=== PATIENT | male | born 1960 | race African-American/Black ===

== ENCOUNTER 2017-06-06 21:59 | Emergency (ER) | payer MEDICAID ==
[~2017-06-06] VITALS: Ht 182.9 cm; Wt 81.5 kg
[2017-06-07 00:13] VITALS: BP 100/65
== END 2017-06-07 00:29 | disposition home or self-care (01) ==
LOC: EMS 22:00
DX: B35.3 Tinea pedis (principal); F17.210 Nicotine dependence, cigarettes, uncomplicated
CPT/HCPCS: 99282

== ENCOUNTER 2017-09-20 18:35 | Emergency (ER) | payer MEDICAID ==
[~2017-09-20] VITALS: Ht 182.9 cm; Wt 79.5 kg
[2017-09-20] MEDS ORDERED: METHOCARBAMOL 500 MG TABLET PO ONE (19:00)
[2017-09-20] MEDS ORDERED: ACETAMINOPHEN 325 MG TABLET PO ONE (19:00)
[2017-09-20 20:20] VITALS: BP 137/89
== END 2017-09-20 20:22 | disposition home or self-care (01) ==
LOC: EMS 18:37
DX: S46.911A Strain of unspecified muscle, fascia and tendon at shoulder and upper arm level, right arm, initial encounter (principal); F12.90 Cannabis use, unspecified, uncomplicated; F17.210 Nicotine dependence, cigarettes, uncomplicated; W18.39XA Other fall on same level, initial encounter; Y93.89 Activity, other specified; Y92.89 Other specified places as the place of occurrence of the external cause; Y99.8 Other external cause status
CPT/HCPCS: 99284; 99406

== ENCOUNTER 2018-02-12 21:08 | Emergency (ER) | payer MEDICAID ==
[~2018-02-12] VITALS: Ht 182.9 cm; Wt 81.8 kg
[2018-02-12 23:30] VITALS: BP 158/99
[2018-02-12] MEDS ORDERED: KETOROLAC TROMETHAMINE 30 MG/ML VIAL IM ONE (23:45)
== END 2018-02-12 23:54 | disposition home or self-care (01) ==
LOC: EMS 21:11
DX: S02.40EA Zygomatic fracture, right side, initial encounter for closed fracture (principal); S01.111A Laceration without foreign body of right eyelid and periocular area, initial encounter; Z87.891 Personal history of nicotine dependence; W19.XXXA Unspecified fall, initial encounter; Y93.89 Activity, other specified; Y92.59 Other trade areas as the place of occurrence of the external cause; Y99.8 Other external cause status
CPT/HCPCS: 70450; 70486; 96372; 99284; J1885

== ENCOUNTER 2018-02-13 06:39 | Emergency (ER) | payer MEDICAID ==
[~2018-02-13] VITALS: Ht 182.9 cm; Wt 81.0 kg
[2018-02-13 07:32] VITALS: BP 133/74
== END 2018-02-13 07:48 | disposition home or self-care (01) ==
LOC: EMS 06:40
DX: S02.402D Zygomatic fracture, unspecified side, subsequent encounter for fracture with routine healing (principal); Z76.0 Encounter for issue of repeat prescription; X58.XXXD Exposure to other specified factors, subsequent encounter
CPT/HCPCS: 99283

== ENCOUNTER 2018-05-17 06:21 | Emergency (ER) | payer MEDICAID ==
[~2018-05-17] VITALS: Ht 182.9 cm; Wt 84.1 kg
[2018-05-17] MEDS ORDERED: IPRATROPIUM BROMIDE 0.5 MG/2.5 ML NEB SOLUTION NEB ONE (07:30)
[2018-05-17] MEDS ORDERED: ALBUTEROL SULFATE 2.5 MG/0.5 ML NEB SOLUTION NEB ONE (07:30)
[2018-05-17 08:21] LABS: BASOPHILS % (AUTO) 1.1 % (0.0-2.0); EOSINOPHILS % (AUTO) 4.8 % (1.0-6.0); HEMATOCRIT 39.8 % (41-53); HEMOGLOBIN 12.9 g/dL (13.5-17.5); LYMPHOCYTES # (AUTO) 1.3 K/uL (1.0-4.8); LYMPHOCYTES % (AUTO) 31.2 % (22.0-44.0); MEAN CORPUSCULAR HEMOGLOBIN 23.4 pg (26.0-34.0); MEAN CORPUSCULAR HGB CONC 32.3 G/dL (31.0-37.0); MEAN CORPUSCULAR VOLUME 72 fL (80-100); MONOCYTES # (AUTO) 0.6 K/uL (0.1-1.0); MONOCYTES % (AUTO) 14.5 % (2.0-9.0); NEUTROPHILS % (AUTO) 48.4 % (40.0-70.0); PLATELET COUNT (AUTO) 287 K/uL (150-450); RED CELL DISTRIBUTION WIDTH 16.7 % (11.5-14.5)
[2018-05-17 08:35] LABS: ANION GAP 5 mmol/L (8-16); CALCIUM, TOTAL 8.9 mg/dL (8.8-10.5); CARBON DIOXIDE 29 mmol/L (22-29); CHLORIDE 103 mmol/L (98-107); CREATININE 1.13 mg/dL (0.60-1.30); GLOMERULAR FILTR. RATE CALC > 60 mL/min (>60); GLUCOSE,RANDOM 88 mg/dL (70-110); POTASSIUM 4.7 mmol/L (3.5-5.1); SODIUM SERUM 137 mmol/L (136-145); UREA NITROGEN, BLOOD 27 mg/dL (7-18)
[2018-05-17 08:38] VITALS: BP 136/85
[2018-05-17 08:40] LABS: ALANINE AMINOTRANSFERASE 26 U/L (12-78); ALBUMIN 3.5 g/dL (3.4-5.0); ALKALINE PHOSPHATASE 107 U/L (46-116); ASPARTATE AMINOTRANSFERASE 22 U/L (15-37); BILIRUBIN,TOTAL 0.2 mg/dL (0.1-1.0); TOTAL PROTEIN, SERUM 7.6 g/dL (6.4-8.2)
== END 2018-05-17 09:21 | disposition home or self-care (01) ==
LOC: EMS 06:21
DX: J40 Bronchitis, not specified as acute or chronic (principal); F17.210 Nicotine dependence, cigarettes, uncomplicated
CPT/HCPCS: 94640; 99406

== ENCOUNTER 2018-05-19 10:30 | Emergency (ER) | payer MEDICAID ==
[~2018-05-19] VITALS: Ht 182.9 cm; Wt 83.0 kg
[2018-05-19 10:45] VITALS: BP 139/89
== END 2018-05-19 11:45 | disposition home or self-care (01) ==
LOC: EMS 10:32
DX: J40 Bronchitis, not specified as acute or chronic (principal); F17.210 Nicotine dependence, cigarettes, uncomplicated
CPT/HCPCS: 99406

== ENCOUNTER 2021-07-12 07:10 | Emergency (ER) | payer MEDICAID ==
[~2021-07-12] VITALS: Ht 185.4 cm; Wt 81.8 kg
[2021-07-12 07:21] VITALS: BP 116/76
[2021-07-12] MEDS ORDERED: LIDOCAINE 1% 10 ML VIAL IM ONE (08:30)
== END 2021-07-12 09:31 | disposition left against medical advice (07) ==
LOC: EMS 07:12
DX: S60.455A Superficial foreign body of left ring finger, initial encounter (principal); F17.210 Nicotine dependence, cigarettes, uncomplicated; W49.04XA Ring or other jewelry causing external constriction, initial encounter; Y93.89 Activity, other specified; Y92.89 Other specified places as the place of occurrence of the external cause; Y99.8 Other external cause status
CPT/HCPCS: 99284; J3490

== ENCOUNTER 2021-07-30 20:59 | Emergency (ER) | payer MEDICAID ==
[~2021-07-30] VITALS: Ht 185.4 cm; Wt 86.4 kg
[2021-07-30 21:10] VITALS: BP 142/86
[2021-07-30 21:34] LABS: COVID AG,FIA SOURCE NASAL SWAB
== END 2021-07-30 22:13 | disposition home or self-care (01) ==
LOC: EMS 21:02
DX: J34.89 Other specified disorders of nose and nasal sinuses (principal); F17.210 Nicotine dependence, cigarettes, uncomplicated; Z20.822 Contact with and (suspected) exposure to COVID-19
CPT/HCPCS: 99283

== ENCOUNTER 2021-10-01 20:47 | Inpatient (IN) | payer MEDICAID ==
[~2021-10-01] VITALS: Ht 182.9 cm; Wt 74.0 kg
[2021-10-01] MEDS ORDERED: ONDANSETRON HCL 4 MG/2 ML VIAL IVP ONE (21:15)
[2021-10-01 21:50] LABS: BASOPHILS % (AUTO) 0.7 % (0.0-2.0); EOSINOPHILS % (AUTO) 1.1 % (1.0-6.0); HEMATOCRIT 43.9 % (41-53); LYMPHOCYTES # (AUTO) 1.4 K/uL (1.0-4.8); MEAN CORPUSCULAR HEMOGLOBIN 23.6 pg (26.0-34.0); MEAN CORPUSCULAR HGB CONC 31.9 G/dL (31.0-37.0); MEAN CORPUSCULAR VOLUME 74 fL (80-100); MONOCYTES # (AUTO) 0.7 K/uL (0.1-1.0); MONOCYTES % (AUTO) 12.8 % (2.0-9.0); NEUTROPHILS # (AUTO) 3.5 K/uL (1.8-7.7); NEUTROPHILS % (AUTO) 61.4 % (40.0-70.0); PLATELET COUNT (AUTO) 310 K/uL (150-450); RED BLOOD CELL COUNT(AUTO) 5.93 MIL/uL (4.50-5.90); RED CELL DISTRIBUTION WIDTH 16.8 % (11.5-14.5)
[2021-10-01 22:00] LABS: ANION GAP 8 mmol/L (8-16); CALCIUM, TOTAL 9.6 mg/dL (8.8-10.5); CARBON DIOXIDE 29 mmol/L (22-29); CHLORIDE 100 mmol/L (98-107); CREATININE 1.29 mg/dL (0.60-1.30); GLOMERULAR FILTR. RATE CALC > 60 mL/min (>60); GLUCOSE,RANDOM 115 mg/dL (70-110); POTASSIUM 3.7 mmol/L (3.5-5.1); SODIUM SERUM 137 mmol/L (136-145); UREA NITROGEN, BLOOD 18 mg/dL (7-18)
[2021-10-01 22:05] LABS: ALANINE AMINOTRANSFERASE 22 U/L (12-78); ALKALINE PHOSPHATASE 120 U/L (46-116); ASPARTATE AMINOTRANSFERASE 20 U/L (15-37); BILIRUBIN,TOTAL 0.3 mg/dL (0.1-1.0); TOTAL PROTEIN, SERUM 8.6 g/dL (6.4-8.2)
[2021-10-01] MEDS ORDERED: ASPIRIN 81 MG CHEWABLE TABLET PO ONE (22:45)
[2021-10-01 22:47] LABS: COVID AG,FIA SOURCE NASAL SWAB
[2021-10-02] MEDS ORDERED: ONDANSETRON HCL 4 MG/2 ML VIAL IVP PRN (00:30)
[2021-10-02] MEDS ORDERED: MAGNESIUM HYDROXIDE SUSPENSION 30 ML UDCUP PO PRN (00:30)
[2021-10-02] MEDS ORDERED: ZOLPIDEM TARTRATE 5 MG TABLET PO PRN (00:30)
[2021-10-02] MEDS ORDERED: MORPHINE SULFATE 2 MG/ML SYRINGE IVP PRN (00:30)
[2021-10-02] MEDS ORDERED: BISACODYL 10 MG RECTAL RECTAL SUPPOSITORY PR PRN (00:30)
[2021-10-02] MEDS ORDERED: ACETAMINOPHEN 325 MG TABLET PO PRN (00:30)
[2021-10-02] MEDS ORDERED: HEPARIN SODIUM,PORCINE 5,000 UNITS/ML VIAL IVP PRN ×2 (01:00)
[2021-10-02 01:16] LABS: PROTHROMBIN TIME 10.3 SEC (9.4-11.6)
[2021-10-02 04:44] LABS: APPEARANCE,URINE CLEAR (CLEAR); BILIRUBIN,URINE NEGATIVE (NEGATIVE); GLUCOSE, URINE (UA) NEGATIVE (NEGATIVE); KETONES,URINE NEGATIVE (NEGATIVE); LEUKOCYTE ESTERASE ,URINE NEGATIVE (NEGATIVE); NITRATE,URINE NEGATIVE (NEGATIVE); OCCULT BLOOD,URINE NEGATIVE (NEGATIVE); PH,URINE 7.5 (5.0-8.0); PROTEIN,URINE TRACE mg/dL (NEGATIVE); UROBILINOGEN,URINE <=1.0 mg/dL (<=1.0)
[2021-10-02 04:53] LABS: AMPHET/METH SCREEN,URINE NEGATIVE (NEGATIVE); BARBITURATE SCREEN, URINE NEGATIVE (NEGATIVE); BENZODIAZEPINES SCREEN,URINE NEGATIVE (NEGATIVE); CANNABINOID SCREEN,URINE POSITIVE (NEGATIVE); COCAINE SCREEN,URINE POSITIVE (NEGATIVE); METHADONE SCREEN, URINE NEGATIVE (NEGATIVE); OPIATE SCREEN,URINE NEGATIVE (NEGATIVE); PHENCYCLIDINE SCREEN,URINE NEGATIVE (NEGATIVE)
[2021-10-02 05:01] LABS: BACTERIA,URINE Rare /HPF (None Seen); RBC,URINE 0-2 /HPF (0-2)
[2021-10-02] MEDS: NITROGLYCERIN 2% (1 GM=INCH) PACKET TP SCH ×3 (07:25→23:27)
[2021-10-02 07:51] LABS: GLUCOMETER DEV NAME(LOC) ERT.5; GLUCOSE,POINT OF CARE 105 MG/DL (70-110)
[2021-10-02] MEDS ORDERED: HEPARIN SODIUM,PORCINE 5,000 UNITS/ML VIAL SQ SCH (08:00)
[2021-10-02] MEDS: DOCUSATE SODIUM 100 MG CAPSULE PO SCH ×2 (08:26→20:08)
[2021-10-02] MEDS: PANTOPRAZOLE SODIUM 40 MG DR TABLET PO SCH (08:26)
[2021-10-02] MEDS: ASPIRIN 81 MG CHEWABLE TABLET PO SCH (08:26)
[2021-10-02 09:26] VITALS: BP 153/93
[2021-10-02 11:20] VITALS: BP 138/98
[2021-10-02] MEDS: HEPARIN SODIUM 25000 UNITS/D5W 250 ML IV PRN (15:32)
[2021-10-02] MEDS: HYDROCODONE/ACETAMINOPHEN 5-325 MG TABLET PO PRN (16:09)
[2021-10-02] MEDS: ATORVASTATIN CALCIUM 40 MG TABLET PO SCH (16:10)
[2021-10-02] MEDS: METOPROLOL SUCCINATE 50 MG ER TABLET PO SCH (16:10)
[2021-10-02 16:30] VITALS: BP 148/88
[2021-10-02 19:28] VITALS: BP 141/96
[2021-10-02] MEDS ORDERED: BENZONATATE 100 MG CAPSULE PO PRN (22:30)
[2021-10-03] VITALS (19 sets, daily range): BP systolic 112–176; BP diastolic 77–108
[2021-10-03 07:01] LABS: BASOPHILS % (AUTO) 0.7 % (0.0-2.0); EOSINOPHILS % (AUTO) 3.3 % (1.0-6.0); HEMATOCRIT 46.8 % (41-53); HEMOGLOBIN 15.2 g/dL (13.5-17.5); LYMPHOCYTES # (AUTO) 2.4 K/uL (1.0-4.8); LYMPHOCYTES % (AUTO) 37.9 % (22.0-44.0); MEAN CORPUSCULAR HGB CONC 32.6 G/dL (31.0-37.0); MEAN CORPUSCULAR VOLUME 74 fL (80-100); MONOCYTES # (AUTO) 0.7 K/uL (0.1-1.0); MONOCYTES % (AUTO) 10.6 % (2.0-9.0); NEUTROPHILS % (AUTO) 47.5 % (40.0-70.0); PLATELET COUNT (AUTO) 348 K/uL (150-450); RED BLOOD CELL COUNT(AUTO) 6.35 MIL/uL (4.50-5.90); RED CELL DISTRIBUTION WIDTH 16.8 % (11.5-14.5)
[2021-10-03 07:22] LABS: ALBUMIN 3.6 g/dL (3.4-5.0); BILIRUBIN,TOTAL 0.3 mg/dL (0.1-1.0); CALCIUM, TOTAL 9.3 mg/dL (8.8-10.5); CREATININE 1.48 mg/dL (0.60-1.30); POTASSIUM 4.1 mmol/L (3.5-5.1); TOTAL PROTEIN, SERUM 8.2 g/dL (6.4-8.2)
[2021-10-03] MEDS: DOCUSATE SODIUM 100 MG CAPSULE PO SCH ×2 (08:17→20:22)
[2021-10-03] MEDS: ASPIRIN 81 MG CHEWABLE TABLET PO SCH (08:17)
[2021-10-03] MEDS: PANTOPRAZOLE SODIUM 40 MG DR TABLET PO SCH (08:17)
[2021-10-03] MEDS: METOPROLOL SUCCINATE 50 MG ER TABLET PO SCH (08:17)
[2021-10-03] MEDS: ATORVASTATIN CALCIUM 40 MG TABLET PO SCH (08:17)
[2021-10-03] MEDS: NITROGLYCERIN 2% (1 GM=INCH) PACKET TP SCH ×3 (08:18→23:35)
[2021-10-03] MEDS: HEPARIN SODIUM 25000 UNITS/D5W 250 ML IV PRN (08:24)
[2021-10-03] MEDS: HYDROCODONE/ACETAMINOPHEN 5-325 MG TABLET PO PRN ×2 (13:02→16:40)
[2021-10-03] MEDS ORDERED: IOHEXOL 300 MG/ML 150 ML VIAL ONE (14:31)
[2021-10-03] MEDS ORDERED: IOHEXOL 300 MG/ML 100 ML VIAL ONE (14:31)
[2021-10-03] MEDS ORDERED: SODIUM BICARBONATE 50 MEQ/50 ML VIAL ONE (14:31)
[2021-10-03] MEDS ORDERED: IOHEXOL 300 MG/ML 50 ML VIAL ONE (14:31)
[2021-10-03] MEDS ORDERED: LIDOCAINE/PF 1% 30 ML VIAL ONE (14:31)
[2021-10-03] MEDS ORDERED: HEPARIN SODIUM 1000 UNITS/NS 0 ML ONE (14:31)
[2021-10-03] MEDS ORDERED: FentaNYL CITRATE PF 100 MCG/2 ML VIAL ONE (14:55)
[2021-10-03] MEDS ORDERED: MIDAZOLAM HCL 2 MG/2 ML VIAL ONE (14:55)
[2021-10-03] MEDS ORDERED: HEPARIN SODIUM 1000 UNITS/NS 1,000 ML ONE (14:56)
[2021-10-03] MEDS ORDERED: LIDOCAINE 1% 30 ML/SOD BICARB 8.4% 4 ML SQ ONE (15:30)
[2021-10-03] MEDS ORDERED: SODIUM CHLORIDE 0.9% 500 ML IV ONE (15:30)
[2021-10-03] MEDS ORDERED: HEPARIN SODIUM 1000 UNITS/NS 1,000 ML IARTER ONE (15:30)
[2021-10-03] MEDS ORDERED: IOHEXOL 300 MG/ML 150 ML VIAL IARTER ONE (15:30)
[2021-10-03] MEDS: AmLODIPine BESYLATE 5 MG TABLET PO SCH (16:40)
[2021-10-04] VITALS: BP 128/86
[2021-10-04 05:00] VITALS: BP 139/89
[2021-10-04] MEDS: AmLODIPine BESYLATE 5 MG TABLET PO SCH ×2 (09:00→12:15)
[2021-10-04 09:02] VITALS: BP 118/77
[2021-10-04] MEDS ORDERED: AMLO-257 PO (09:14)
[2021-10-04] MEDS ORDERED: ATOR40TA71 PO (09:14)
[2021-10-04] MEDS ORDERED: METO-391 PO (09:14)
[2021-10-04] MEDS ORDERED: ASPI81 PO (09:14)
[2021-10-04] MEDS: METOPROLOL SUCCINATE 50 MG ER TABLET PO SCH (09:19)
[2021-10-04] MEDS: ATORVASTATIN CALCIUM 40 MG TABLET PO SCH (09:19)
[2021-10-04] MEDS: DOCUSATE SODIUM 100 MG CAPSULE PO SCH (09:19)
[2021-10-04] MEDS: PANTOPRAZOLE SODIUM 40 MG DR TABLET PO SCH (09:19)
[2021-10-04] MEDS: NITROGLYCERIN 2% (1 GM=INCH) PACKET TP SCH (09:19)
[2021-10-04] MEDS: ASPIRIN 81 MG CHEWABLE TABLET PO SCH (09:19)
[2021-10-04] MEDS: HYDROCODONE/ACETAMINOPHEN 5-325 MG TABLET PO PRN (10:19)
[2021-10-04 10:28] LABS: BASOPHILS % (AUTO) 0.7 % (0.0-2.0); EOSINOPHILS % (AUTO) 2.9 % (1.0-6.0); HEMATOCRIT 46.5 % (41-53); LYMPHOCYTES # (AUTO) 1.5 K/uL (1.0-4.8); LYMPHOCYTES % (AUTO) 25.1 % (22.0-44.0); MEAN CORPUSCULAR HEMOGLOBIN 23.8 pg (26.0-34.0); MEAN CORPUSCULAR HGB CONC 32.3 G/dL (31.0-37.0); MEAN CORPUSCULAR VOLUME 74 fL (80-100); MONOCYTES # (AUTO) 0.7 K/uL (0.1-1.0); MONOCYTES % (AUTO) 12.5 % (2.0-9.0); NEUTROPHILS # (AUTO) 3.5 K/uL (1.8-7.7); NEUTROPHILS % (AUTO) 58.8 % (40.0-70.0); PLATELET COUNT (AUTO) 330 K/uL (150-450); RED BLOOD CELL COUNT(AUTO) 6.32 MIL/uL (4.50-5.90)
[2021-10-04 10:40] LABS: ALBUMIN 3.8 g/dL (3.4-5.0); BILIRUBIN,TOTAL 0.3 mg/dL (0.1-1.0); CALCIUM, TOTAL 9.3 mg/dL (8.8-10.5); CREATININE 1.47 mg/dL (0.60-1.30); POTASSIUM 4.3 mmol/L (3.5-5.1); TOTAL PROTEIN, SERUM 8.7 g/dL (6.4-8.2)
== END 2021-10-04 12:35 | disposition home or self-care (01) | DRG 816 ==
LOC: EMS 21:15 → 5S 10-02 06:05
PROVIDERS: ADMIT Internal Medicine; ATTEND Internal Medicine
PROC: 4A023N7 Measurement of Cardiac Sampling and Pressure, Left Heart, Percutaneous Approach (ICD-10-PCS; principal; 2021-10-03)
PROC: B2111ZZ Fluoroscopy of Multiple Coronary Arteries using Low Osmolar Contrast (ICD-10-PCS; 2021-10-03)
DX: T40.5X1A Poisoning by cocaine, accidental (unintentional), initial encounter (principal); I21.4 Non-ST elevation (NSTEMI) myocardial infarction; F14.188 Cocaine abuse with other cocaine-induced disorder; I10 Essential (primary) hypertension; F19.10 Other psychoactive substance abuse, uncomplicated; Z20.822 Contact with and (suspected) exposure to COVID-19; Z79.82 Long term (current) use of aspirin; Z79.899 Other long term (current) drug therapy; Z87.891 Personal history of nicotine dependence
CPT/HCPCS: 71045; 80053; 81001; 82962; 84484; 85025; 85610; 85730; 93005; 93306; 99285; G0378; J1644; J2250; J2270; J2405; J3010; J3490; Q9967; 36415-L1; 36415-TC

== ENCOUNTER 2021-10-18 07:00 | Emergency (ER) | payer MEDICAID ==
[~2021-10-18] VITALS: Ht 182.9 cm; Wt 81.8 kg
[2021-10-18 07:00] VITALS: BP 108/56
[~2021-10-18 07:00] MED LIST: AMLO-257 PO; ASPI81 PO; ATOR40TA71 PO; METO-391 PO
[2021-10-18] MEDS ORDERED: AMOX1TAB16 PO (07:42)
== END 2021-10-18 07:50 | disposition home or self-care (01) ==
LOC: EMS 07:00
DX: K12.30 Oral mucositis (ulcerative), unspecified (principal); I11.9 Hypertensive heart disease without heart failure; F17.210 Nicotine dependence, cigarettes, uncomplicated; Z79.82 Long term (current) use of aspirin
CPT/HCPCS: 99281; 99283

== ENCOUNTER 2021-10-29 00:47 | Inpatient (IN) | payer MEDICAID ==
[~2021-10-29] VITALS: Ht 182.9 cm; Wt 72.7 kg
[~2021-10-29 00:47] MED LIST changes: +AMOX1TAB16 PO
[2021-10-29] MEDS ORDERED: SODIUM CHLORIDE 0.9% 1,000 ML IV ONE ×3 (01:00→04:15)
[2021-10-29] MEDS ORDERED: ONDANSETRON HCL 4 MG/2 ML VIAL IVP ONE ×2 (01:00→04:15)
[2021-10-29 01:01] LABS: BASOPHILS % (AUTO) 0.9 % (0.0-2.0); EOSINOPHILS % (AUTO) 5.3 % (1.0-6.0); HEMATOCRIT 39.4 % (41-53); HEMOGLOBIN 12.6 g/dL (13.5-17.5); LYMPHOCYTES # (AUTO) 1.5 K/uL (1.0-4.8); LYMPHOCYTES % (AUTO) 34.3 % (22.0-44.0); MEAN CORPUSCULAR HEMOGLOBIN 23.9 pg (26.0-34.0); MEAN CORPUSCULAR HGB CONC 31.9 G/dL (31.0-37.0); MEAN CORPUSCULAR VOLUME 75 fL (80-100); MONOCYTES # (AUTO) 0.2 K/uL (0.1-1.0); MONOCYTES % (AUTO) 5.1 % (2.0-9.0); NEUTROPHILS # (AUTO) 2.4 K/uL (1.8-7.7); NEUTROPHILS % (AUTO) 54.4 % (40.0-70.0); PLATELET COUNT (AUTO) 254 K/uL (150-450); RED BLOOD CELL COUNT(AUTO) 5.26 MIL/uL (4.50-5.90); RED CELL DISTRIBUTION WIDTH 16.7 % (11.5-14.5)
[2021-10-29] MEDS ORDERED: NALOXONE HCL 1 MG/ML 2 ML SYRINGE IVP ONE ×2 (01:15→02:00)
[2021-10-29] MEDS ORDERED: LEVE250T PO (01:21)
[2021-10-29 01:22] LABS: ALANINE AMINOTRANSFERASE 49 U/L (12-78); ALBUMIN 3.5 g/dL (3.4-5.0); ALKALINE PHOSPHATASE 120 U/L (46-116); ANION GAP 17 mmol/L (8-16); ASPARTATE AMINOTRANSFERASE 53 U/L (15-37); BILIRUBIN,TOTAL 0.2 mg/dL (0.1-1.0); CALCIUM, TOTAL 8.1 mg/dL (8.8-10.5); CARBON DIOXIDE 21 mmol/L (22-29); CHLORIDE 101 mmol/L (98-107); CREATININE 1.95 mg/dL (0.60-1.30); GLOMERULAR FILTR. RATE CALC 43 mL/min (>60); GLUCOSE,RANDOM 210 mg/dL (70-110); SODIUM SERUM 139 mmol/L (136-145); TOTAL PROTEIN, SERUM 7.6 g/dL (6.4-8.2); UREA NITROGEN, BLOOD 27 mg/dL (7-18)
[2021-10-29 01:27] LABS: POTASSIUM 2.6 mmol/L (3.5-5.1)
[2021-10-29 01:32] LABS: ACETAMINOPHEN < 2 mcg/mL (10-30)
[2021-10-29] MEDS ORDERED: ASPIRIN 81 MG CHEWABLE TABLET PO ONE (01:45)
[2021-10-29 01:48] LABS: SALICYLATE 5.2 mg/dL (2.8-20.0)
[2021-10-29 01:55] LABS: CREATINE KINASE, TOTAL ONLY 386 U/L (39-308)
[2021-10-29 01:57] LABS: AMPHET/METH SCREEN,URINE NEGATIVE (NEGATIVE); BARBITURATE SCREEN, URINE NEGATIVE (NEGATIVE); BENZODIAZEPINES SCREEN,URINE NEGATIVE (NEGATIVE); CANNABINOID SCREEN,URINE POSITIVE (NEGATIVE); COCAINE SCREEN,URINE POSITIVE (NEGATIVE); METHADONE SCREEN, URINE NEGATIVE (NEGATIVE); OPIATE SCREEN,URINE NEGATIVE (NEGATIVE); PHENCYCLIDINE SCREEN,URINE POSITIVE (NEGATIVE)
[2021-10-29] MEDS: POTASSIUM CHL 10 MEQ/WATER 50 ML IV SCH ×3 (02:00→05:06)
[2021-10-29 02:19] LABS: COVID AG,FIA SOURCE NASAL SWAB
[2021-10-29] MEDS ORDERED: NALOXONE HCL 10 MG in DEXTROSE 5%-WATER 240 ML IV PRN (03:15)
[2021-10-29] MEDS ORDERED: ACETAMINOPHEN 325 MG TABLET PO PRN (04:15)
[2021-10-29] MEDS ORDERED: CefTRIAXone 1 GM/DEXTROSE 50 ML IV SCH (05:00)
[2021-10-29 05:09] LABS: CREATININE,URINE RANDOM 142.4 mg/dL (30.0-125.0)
[2021-10-29] MEDS ORDERED: SODIUM CHLORIDE 0.9% 500 ML IV ONE (05:58)
[2021-10-29] MEDS ORDERED: AZITHROMYCIN 500 MG/NS 250 ML IV SCH (06:00)
[2021-10-29 06:35] LABS: BASOPHILS % (AUTO) 0.5 % (0.0-2.0); EOSINOPHILS % (AUTO) 0.7 % (1.0-6.0); HEMATOCRIT 43.5 % (41-53); HEMOGLOBIN 13.8 g/dL (13.5-17.5); LYMPHOCYTES # (AUTO) 1.1 K/uL (1.0-4.8); LYMPHOCYTES % (AUTO) 11.1 % (22.0-44.0); MEAN CORPUSCULAR HEMOGLOBIN 23.9 pg (26.0-34.0); MEAN CORPUSCULAR HGB CONC 31.8 G/dL (31.0-37.0); MEAN CORPUSCULAR VOLUME 75 fL (80-100); MONOCYTES # (AUTO) 0.8 K/uL (0.1-1.0); MONOCYTES % (AUTO) 8.1 % (2.0-9.0); NEUTROPHILS % (AUTO) 79.6 % (40.0-70.0); PLATELET COUNT (AUTO) 244 K/uL (150-450); RED BLOOD CELL COUNT(AUTO) 5.78 MIL/uL (4.50-5.90); RED CELL DISTRIBUTION WIDTH 16.8 % (11.5-14.5)
[2021-10-29 06:44] LABS: ANION GAP 7 mmol/L (8-16); CARBON DIOXIDE 25 mmol/L (22-29); CHLORIDE 103 mmol/L (98-107); CREATININE 1.19 mg/dL (0.60-1.30); GLOMERULAR FILTR. RATE CALC > 60 mL/min (>60); GLUCOSE,RANDOM 103 mg/dL (70-110); POTASSIUM 3.7 mmol/L (3.5-5.1); SODIUM SERUM 135 mmol/L (136-145); UREA NITROGEN, BLOOD 19 mg/dL (7-18)
[2021-10-29 06:53] LABS: LACTIC ACID 3.6 mmol/L (0.4-2.0)
[2021-10-29 08:00] VITALS: BP 153/96
[2021-10-29] MEDS: LevETIRAcetam 250 MG TABLET PO SCH ×2 (08:38→20:41)
[2021-10-29] MEDS: ATORVASTATIN CALCIUM 40 MG TABLET PO SCH (08:38)
[2021-10-29] MEDS: HEPARIN SODIUM,PORCINE 5,000 UNITS/ML VIAL SQ SCH ×2 (08:38→16:46)
[2021-10-29] MEDS: ASPIRIN 81 MG CHEWABLE TABLET PO SCH (08:38)
[2021-10-29] MEDS: AmLODIPine BESYLATE 5 MG TABLET PO SCH (08:38)
[2021-10-29] MEDS ORDERED: AMOX TR/POT CLAV 875 MG/125 MG TABLET PO SCH ×2 (09:00)
[2021-10-29] MEDS ORDERED: METOPROLOL SUCCINATE 50 MG ER TABLET PO SCH (09:00)
[2021-10-29] MEDS: ONDANSETRON HCL 4 MG/2 ML VIAL IVP PRN ×2 (09:03→16:46)
[2021-10-29] MEDS ORDERED: MAGNESIUM SULFATE 2 GM, MVI, ADULT NO.1 WITH VIT K 10 ML, THIAMINE 100 MG, FOLIC ACID 1... IV ONE ×5 (11:45)
[2021-10-29 12:00] VITALS: BP 123/59
[2021-10-29] MEDS: AMPICILLIN SODIUM/SULBACTAM NA 1.5 GM in SODIUM CHLORIDE 0.9% 50 ML IV SCH ×2 (12:28→17:48)
[2021-10-29 16:00] VITALS: BP 149/91
[2021-10-29 20:00] VITALS: BP 139/100
[2021-10-30] VITALS: BP 124/79
[2021-10-30] MEDS: HEPARIN SODIUM,PORCINE 5,000 UNITS/ML VIAL SQ SCH ×2 (00:07→09:06)
[2021-10-30] MEDS: AMPICILLIN SODIUM/SULBACTAM NA 1.5 GM in SODIUM CHLORIDE 0.9% 50 ML IV SCH ×2 (00:08→06:30)
[2021-10-30 04:00] VITALS: BP 96/67
[2021-10-30 06:05] LABS: BASOPHILS % (AUTO) 0.8 % (0.0-2.0); EOSINOPHILS % (AUTO) 5.5 % (1.0-6.0); HEMATOCRIT 37.8 % (41-53); LYMPHOCYTES # (AUTO) 1.5 K/uL (1.0-4.8); MEAN CORPUSCULAR HEMOGLOBIN 23.7 pg (26.0-34.0); MEAN CORPUSCULAR HGB CONC 31.8 G/dL (31.0-37.0); MEAN CORPUSCULAR VOLUME 75 fL (80-100); MONOCYTES # (AUTO) 0.5 K/uL (0.1-1.0); NEUTROPHILS # (AUTO) 2.6 K/uL (1.8-7.7); NEUTROPHILS % (AUTO) 52.7 % (40.0-70.0); PLATELET COUNT (AUTO) 240 K/uL (150-450); RED BLOOD CELL COUNT(AUTO) 5.06 MIL/uL (4.50-5.90); RED CELL DISTRIBUTION WIDTH 16.8 % (11.5-14.5)
[2021-10-30 06:06] LABS: ANION GAP 6 mmol/L (8-16); CARBON DIOXIDE 29 mmol/L (22-29); CHLORIDE 104 mmol/L (98-107); CREATININE 1.36 mg/dL (0.60-1.30); GLUCOSE,RANDOM 111 mg/dL (70-110); POTASSIUM 3.7 mmol/L (3.5-5.1); SODIUM SERUM 139 mmol/L (136-145); UREA NITROGEN, BLOOD 17 mg/dL (7-18)
[2021-10-30] MEDS ORDERED: SODIUM CHLORIDE 0.9% 250 ML IV ONE (06:29)
[2021-10-30 06:30] LABS: GLOMERULAR FILTR. RATE CALC > 60 mL/min (>60)
[2021-10-30 06:58] VITALS: BP 140/54
[2021-10-30 08:12] VITALS: BP 138/58
[2021-10-30] MEDS: LevETIRAcetam 250 MG TABLET PO SCH (09:06)
[2021-10-30] MEDS: ASPIRIN 81 MG CHEWABLE TABLET PO SCH (09:06)
[2021-10-30] MEDS: AmLODIPine BESYLATE 5 MG TABLET PO SCH (09:06)
[2021-10-30] MEDS: ATORVASTATIN CALCIUM 40 MG TABLET PO SCH (09:06)
== END 2021-10-30 09:25 | disposition left against medical advice (07) | DRG 812 ==
LOC: EMS 00:53 → ICU 04:18 → 6N 10-30 06:00
PROVIDERS: ADMIT Internal Medicine; ATTEND Internal Medicine
DX: T50.901A Poisoning by unspecified drugs, medicaments and biological substances, accidental (unintentional), initial encounter (principal); J96.01 Acute respiratory failure with hypoxia; J69.0 Pneumonitis due to inhalation of food and vomit; N17.0 Acute kidney failure with tubular necrosis; G92.9 Unspecified toxic encephalopathy; E87.6 Hypokalemia; I11.9 Hypertensive heart disease without heart failure; I44.0 Atrioventricular block, first degree; R77.8 Other specified abnormalities of plasma proteins; F17.210 Nicotine dependence, cigarettes, uncomplicated; F19.10 Other psychoactive substance abuse, uncomplicated; Z20.822 Contact with and (suspected) exposure to COVID-19; Z59.00 Homelessness unspecified; Y92.89 Other specified places as the place of occurrence of the external cause; Z79.82 Long term (current) use of aspirin
CPT/HCPCS: 71045; 80048; 80053; 82550; 82570; 83605; 83735; 84300; 84484; 85025; 87040; 87081; 93005; 99291; G0378; G0480; G0481; J0295; J0456; J0696; J1644; J2310; J2405; J3411; J3475; J3480; J3490; J7030; J7040; J7050; J7060; 36415-L1; 36415-TC; U0003

== ENCOUNTER 2021-10-31 15:29 | Emergency (ER) | payer MEDICAID ==
[~2021-10-31 15:29] MED LIST changes: +LEVE250T PO
== END 2021-10-31 20:28 | disposition left against medical advice (07) ==
LOC: EMS 15:32
DX: R51.9 Headache, unspecified (principal); Z53.21 Procedure and treatment not carried out due to patient leaving prior to being seen by health care provider

== ENCOUNTER 2021-11-01 09:47 | Emergency (ER) | payer MEDICAID ==
[~2021-11-01] VITALS: Ht 182.9 cm; Wt 81.8 kg
[~2021-11-01 09:47] MED LIST changes: -AMOX1TAB16 PO
[2021-11-01 09:59] VITALS: BP 159/89
== END 2021-11-01 11:00 | disposition left against medical advice (07) ==
LOC: EMS 09:47
DX: Z53.21 Procedure and treatment not carried out due to patient leaving prior to being seen by health care provider (principal)

== ENCOUNTER 2021-12-15 19:19 | Emergency (ER) | payer MEDICAID ==
[~2021-12-15 19:19] MED LIST changes: -AMLO-257 PO; -METO-391 PO
== END 2021-12-15 19:45 | disposition left against medical advice (07) ==
LOC: EMS 19:23
DX: Z00.00 Encounter for general adult medical examination without abnormal findings (principal); Z53.21 Procedure and treatment not carried out due to patient leaving prior to being seen by health care provider

== ENCOUNTER 2021-12-16 14:00 | Emergency (ER) | payer MEDICAID ==
[~2021-12-16] VITALS: Ht 182.9 cm; Wt 81.8 kg
[2021-12-16 14:30] VITALS: BP 116/83
== END 2021-12-16 15:05 | disposition left against medical advice (07) ==
LOC: EMS 14:00
DX: S41.111A Laceration without foreign body of right upper arm, initial encounter (principal); S41.112A Laceration without foreign body of left upper arm, initial encounter; Z79.899 Other long term (current) drug therapy; W25.XXXA Contact with sharp glass, initial encounter; Y93.89 Activity, other specified; Y92.89 Other specified places as the place of occurrence of the external cause; Y99.8 Other external cause status
CPT/HCPCS: 99281; Z7502

== ENCOUNTER 2021-12-19 06:35 | Emergency (ER) | payer MEDICAID ==
[~2021-12-19] VITALS: Ht 182.9 cm; Wt 79.0 kg
[2021-12-19 09:34] VITALS: BP 124/72
== END 2021-12-19 10:12 | disposition home or self-care (01) ==
LOC: EMS 06:35
DX: S81.812A Laceration without foreign body, left lower leg, initial encounter (principal); F17.210 Nicotine dependence, cigarettes, uncomplicated; F14.90 Cocaine use, unspecified, uncomplicated; Z79.82 Long term (current) use of aspirin; Z79.899 Other long term (current) drug therapy
CPT/HCPCS: 99281; Z7502

== ENCOUNTER 2022-01-01 03:54 | Emergency (ER) | payer MEDICAID ==
[~2022-01-01] VITALS: Ht 182.9 cm; Wt 79.5 kg
[2022-01-01 05:31] VITALS: BP 121/82
== END 2022-01-01 05:55 | disposition left against medical advice (07) ==
LOC: EMS 03:54
DX: M79.662 Pain in left lower leg (principal); F10.20 Alcohol dependence, uncomplicated; F14.90 Cocaine use, unspecified, uncomplicated; F17.210 Nicotine dependence, cigarettes, uncomplicated; I25.2 Old myocardial infarction; Z86.79 Personal history of other diseases of the circulatory system; Z86.69 Personal history of other diseases of the nervous system and sense organs
CPT/HCPCS: 99283

== ENCOUNTER 2022-01-04 04:26 | Emergency (ER) | payer MEDICAID ==
[~2022-01-04] VITALS: Ht 182.9 cm; Wt 81.8 kg
[2022-01-04 04:29] VITALS: BP 149/99
[2022-01-04] MEDS ORDERED: BACITRACIN 0.9 GM PACKET OINTMENT TP ONE (04:45)
[2022-01-04] MEDS ORDERED: PERTUSS(ACELL),DIPH,TET VAC/PF 0.5 ML SYRINGE IM. ONE (04:45)
[2022-01-04] MEDS: LIDOCAINE 1%/EPI 1:200,000/PF 30 ML VIAL SQ ONE ×2 (04:46→04:48)
[2022-01-04] MEDS ORDERED: LEVE500T20 PO (04:59)
[2022-01-04] MEDS ORDERED: DOXY-354 PO (05:13)
[2022-01-04] MEDS ORDERED: DOXYCYCLINE HYCLATE 100 MG TABLET PO ONE (05:15)
== END 2022-01-04 06:01 | disposition home or self-care (01) ==
LOC: EMS 04:27
DX: S51.821A Laceration with foreign body of right forearm, initial encounter (principal); F17.210 Nicotine dependence, cigarettes, uncomplicated; F12.90 Cannabis use, unspecified, uncomplicated; F11.90 Opioid use, unspecified, uncomplicated; Z87.09 Personal history of other diseases of the respiratory system; Z86.79 Personal history of other diseases of the circulatory system; Z86.69 Personal history of other diseases of the nervous system and sense organs; Z98.890 Other specified postprocedural states; W25.XXXA Contact with sharp glass, initial encounter; Y93.89 Activity, other specified; Y92.89 Other specified places as the place of occurrence of the external cause; Y99.8 Other external cause status
CPT/HCPCS: 99283; 73090; 12002; J3490

== ENCOUNTER 2022-01-11 20:47 | Emergency (ER) | payer MEDICAID ==
[~2022-01-11] VITALS: Ht 182.9 cm; Wt 81.8 kg
[~2022-01-11 20:47] MED LIST changes: +DOXY-354 PO; +LEVE500T20 PO
[2022-01-11 23:10] LABS: BASOPHILS % (AUTO) 0.4 % (0.0-2.0); EOSINOPHILS % (AUTO) 1.7 % (1.0-6.0); HEMATOCRIT 31.8 % (41-53); HEMOGLOBIN 10.2 g/dL (13.5-17.5); LYMPHOCYTES # (AUTO) 1.3 K/uL (1.0-4.8); LYMPHOCYTES % (AUTO) 18.8 % (22.0-44.0); MEAN CORPUSCULAR HEMOGLOBIN 24.1 pg (26.0-34.0); MEAN CORPUSCULAR HGB CONC 32.2 G/dL (31.0-37.0); MEAN CORPUSCULAR VOLUME 75 fL (80-100); MONOCYTES # (AUTO) 0.8 K/uL (0.1-1.0); NEUTROPHILS # (AUTO) 4.9 K/uL (1.8-7.7); NEUTROPHILS % (AUTO) 68.1 % (40.0-70.0); PLATELET COUNT (AUTO) 282 K/uL (150-450); RED BLOOD CELL COUNT(AUTO) 4.25 MIL/uL (4.50-5.90)
[2022-01-11 23:22] LABS: CALCIUM, TOTAL 8.3 mg/dL (8.8-10.5); CREATININE 1.5 mg/dL (0.60-1.30); POTASSIUM 4.3 mmol/L (3.5-5.1)
[2022-01-11 23:28] LABS: ALBUMIN 2.7 g/dL (3.4-5.0); BILIRUBIN,TOTAL 0.1 mg/dL (0.1-1.0); TOTAL PROTEIN, SERUM 6.1 g/dL (6.4-8.2)
[2022-01-11] MEDS ORDERED: CEPHALEXIN MONOHYDRATE 500 MG CAPSULE PO ONE (23:30)
[2022-01-12] MEDS ORDERED: ACETAMINOPHEN 325 MG TABLET PO ONE
[2022-01-12] MEDS ORDERED: IBUPROFEN 400 MG TABLET PO ONE
[2022-01-12 01:31] VITALS: BP 129/65
[2022-01-12] MEDS ORDERED: CEPH-558 PO (02:22)
== END 2022-01-12 02:33 | disposition home or self-care (01) ==
LOC: EMS 20:50
DX: L03.116 Cellulitis of left lower limb (principal); F12.90 Cannabis use, unspecified, uncomplicated; F14.90 Cocaine use, unspecified, uncomplicated; F17.210 Nicotine dependence, cigarettes, uncomplicated; R60.0 Localized edema
CPT/HCPCS: 80053; 85025; 85379; 93971; 99284

== ENCOUNTER 2022-01-15 01:32 | Inpatient (IN) | payer MEDICAID ==
[~2022-01-15] VITALS: Ht 182.9 cm; Wt 75.0 kg
[~2022-01-15 01:32] MED LIST changes: +CEPH-558 PO
[2022-01-15] MEDS ORDERED: SODIUM CHLORIDE 0.9% 1,000 ML IV ONE (02:45)
[2022-01-15] MEDS ORDERED: FAMOTIDINE 10 MG/ML 2 ML VIAL IVP ONE (02:45)
[2022-01-15 03:00] LABS: BASOPHILS % (AUTO) 0.6 % (0.0-2.0); EOSINOPHILS % (AUTO) 0.2 % (1.0-6.0); HEMATOCRIT 46.3 % (41-53); HEMOGLOBIN 15.2 g/dL (13.5-17.5); LYMPHOCYTES # (AUTO) 0.5 K/uL (1.0-4.8); LYMPHOCYTES % (AUTO) 12.7 % (22.0-44.0); MEAN CORPUSCULAR HEMOGLOBIN 23.9 pg (26.0-34.0); MEAN CORPUSCULAR HGB CONC 32.9 G/dL (31.0-37.0); MEAN CORPUSCULAR VOLUME 73 fL (80-100); MONOCYTES # (AUTO) 0.9 K/uL (0.1-1.0); NEUTROPHILS # (AUTO) 2.4 K/uL (1.8-7.7); NEUTROPHILS % (AUTO) 61.7 % (40.0-70.0); PLATELET COUNT (AUTO) 257 K/uL (150-450); RED BLOOD CELL COUNT(AUTO) 6.38 MIL/uL (4.50-5.90); RED CELL DISTRIBUTION WIDTH 15.7 % (11.5-14.5)
[2022-01-15 03:31] LABS: CALCIUM, TOTAL 9.7 mg/dL (8.8-10.5); CREATININE 1.53 mg/dL (0.60-1.30); POTASSIUM 3.3 mmol/L (3.5-5.1)
[2022-01-15 03:37] LABS: ALBUMIN 3.5 g/dL (3.4-5.0); BILIRUBIN,TOTAL 0.4 mg/dL (0.1-1.0); MONOCYTES % (AUTO) 24.8 % (2.0-9.0); TOTAL PROTEIN, SERUM 8.5 g/dL (6.4-8.2)
[2022-01-15] MEDS ORDERED: METOCLOPRAMIDE HCL 5 MG/ML 2 ML VIAL IVP ONE (03:45)
[2022-01-15 04:33] LABS: APPEARANCE,URINE CLEAR (CLEAR); BILIRUBIN,URINE NEGATIVE (NEGATIVE); GLUCOSE, URINE (UA) 70-100 mg/dL (NEGATIVE); KETONES,URINE NEGATIVE (NEGATIVE); LEUKOCYTE ESTERASE ,URINE NEGATIVE (NEGATIVE); NITRATE,URINE NEGATIVE (NEGATIVE); OCCULT BLOOD,URINE SMALL (NEGATIVE); PROTEIN,URINE 300-600,SEE CONFIRM mg/dL (NEGATIVE); SPECIFIC GRAVITIY, URINE 1.019 (1.003-1.030); UROBILINOGEN,URINE <=1.0 mg/dL (<=1.0)
[2022-01-15 04:40] LABS: AMPHET/METH SCREEN,URINE POSITIVE (NEGATIVE); BARBITURATE SCREEN, URINE NEGATIVE (NEGATIVE); BENZODIAZEPINES SCREEN,URINE NEGATIVE (NEGATIVE); CANNABINOID SCREEN,URINE POSITIVE (NEGATIVE); COCAINE SCREEN,URINE NEGATIVE (NEGATIVE); METHADONE SCREEN, URINE NEGATIVE (NEGATIVE); OPIATE SCREEN,URINE NEGATIVE (NEGATIVE)
[2022-01-15 04:42] LABS: PHENCYCLIDINE SCREEN,URINE POSITIVE (NEGATIVE)
[2022-01-15 04:45] LABS: BACTERIA,URINE None Seen /HPF (None Seen); RBC,URINE None Seen /HPF (0-2); SULFOSALICYLIC ACID,URINE 4+ (Negative); WBC,URINE None Seen /HPF (0-5)
[2022-01-15 05:24] LABS: COVID AG,FIA SOURCE NASAL SWAB
[2022-01-15 06:19] VITALS: BP 153/102
[2022-01-15 08:21] VITALS: BP 134/98
[2022-01-15] MEDS ORDERED: ALBUTEROL SULFATE 2.5 MG/0.5 ML NEB SOLUTION NEB PRN (11:45)
[2022-01-15] MEDS ORDERED: MAGNESIUM HYDROXIDE SUSPENSION 30 ML UDCUP PO PRN (11:45)
[2022-01-15] MEDS ORDERED: ACETAMINOPHEN 325 MG TABLET PO PRN (11:45)
[2022-01-15] MEDS ORDERED: IPRATROPIUM BROMIDE 0.5 MG/2.5 ML NEB SOLUTION NEB PRN (11:45)
[2022-01-15] MEDS ORDERED: BISACODYL 10 MG RECTAL RECTAL SUPPOSITORY PR PRN (11:45)
[2022-01-15] MEDS ORDERED: MORPHINE SULFATE 2 MG/ML SYRINGE IVP PRN (11:45)
[2022-01-15] MEDS ORDERED: POTASSIUM CHLORIDE 20 MEQ ER TABLET PO ONE (11:45)
[2022-01-15 15:30] VITALS: BP 134/103
[2022-01-15] MEDS: ONDANSETRON HCL 4 MG/2 ML VIAL IVP PRN (16:04)
[2022-01-15] MEDS: HEPARIN SODIUM,PORCINE 5,000 UNITS/ML VIAL SQ SCH ×2 (16:04→23:51)
[2022-01-15 19:30] VITALS: BP 133/105
[2022-01-15] MEDS: DOCUSATE SODIUM 100 MG CAPSULE PO SCH (20:36)
[2022-01-15] MEDS: HYDROCODONE/ACETAMINOPHEN 5-325 MG TABLET PO PRN (20:42)
[2022-01-15] MEDS: ZOLPIDEM TARTRATE 5 MG TABLET PO PRN (23:51)
[2022-01-16 04:00] VITALS: BP 125/84
[2022-01-16 08:00] VITALS: BP 133/98
[2022-01-16] MEDS: ONDANSETRON HCL 4 MG/2 ML VIAL IVP PRN (08:02)
[2022-01-16] MEDS: PANTOPRAZOLE SODIUM 40 MG/VIAL IVP SCH (08:02)
[2022-01-16] MEDS: DOCUSATE SODIUM 100 MG CAPSULE PO SCH ×3 (08:02→20:44)
[2022-01-16] MEDS ORDERED: METOCLOPRAMIDE HCL 5 MG/ML 2 ML VIAL IVP PRN (14:45)
[2022-01-16] MEDS: SODIUM CHLORIDE 0.9% 1,000 ML IV SCH (15:22)
[2022-01-16] MEDS: HYDROCODONE/ACETAMINOPHEN 5-325 MG TABLET PO PRN ×2 (15:24→20:41)
[2022-01-16 15:37] LABS: BASOPHILS % (AUTO) 1.1 % (0.0-2.0); EOSINOPHILS % (AUTO) 0.2 % (1.0-6.0); HEMATOCRIT 52.4 % (41-53); HEMOGLOBIN 16.8 g/dL (13.5-17.5); LYMPHOCYTES # (AUTO) 1.2 K/uL (1.0-4.8); LYMPHOCYTES % (AUTO) 34.2 % (22.0-44.0); MEAN CORPUSCULAR HEMOGLOBIN 23.7 pg (26.0-34.0); MEAN CORPUSCULAR HGB CONC 32.1 G/dL (31.0-37.0); MEAN CORPUSCULAR VOLUME 74 fL (80-100); MONOCYTES # (AUTO) 1.1 K/uL (0.1-1.0); MONOCYTES % (AUTO) 32.7 % (2.0-9.0); NEUTROPHILS # (AUTO) 1.1 K/uL (1.8-7.7); NEUTROPHILS % (AUTO) 31.8 % (40.0-70.0); PLATELET COUNT (AUTO) 232 K/uL (150-450)
[2022-01-16 15:53] LABS: ALBUMIN 3.8 g/dL (3.4-5.0); BILIRUBIN,TOTAL 0.3 mg/dL (0.1-1.0); CALCIUM, TOTAL 10.4 mg/dL (8.8-10.5); CREATININE 2.25 mg/dL (0.60-1.30); POTASSIUM 5.5 mmol/L (3.5-5.1)
[2022-01-16 16:01] LABS: PLATELET MORPHOLOGY COMMENT GIANT PLTS PRESENT
[2022-01-16 16:27] VITALS: BP 133/81
[2022-01-16 20:20] VITALS: BP 123/76
[2022-01-17] MEDS: ZOLPIDEM TARTRATE 5 MG TABLET PO PRN (00:13)
[2022-01-17] MEDS: SODIUM CHLORIDE 0.9% 1,000 ML IV SCH ×3 (03:22→21:03)
[2022-01-17 04:40] VITALS: BP 121/84
[2022-01-17 07:37] VITALS: BP 128/96
[2022-01-17] MEDS: DOCUSATE SODIUM 100 MG CAPSULE PO SCH ×2 (09:00→21:04)
[2022-01-17] MEDS: PANTOPRAZOLE SODIUM 40 MG/VIAL IVP SCH (09:42)
[2022-01-17 10:52] LABS: BASOPHILS % (AUTO) 1.5 % (0.0-2.0); EOSINOPHILS % (AUTO) 0.3 % (1.0-6.0); HEMATOCRIT 45.6 % (41-53); HEMOGLOBIN 14.7 g/dL (13.5-17.5); LYMPHOCYTES # (AUTO) 0.8 K/uL (1.0-4.8); LYMPHOCYTES % (AUTO) 28.2 % (22.0-44.0); MEAN CORPUSCULAR HEMOGLOBIN 23.5 pg (26.0-34.0); MEAN CORPUSCULAR HGB CONC 32.2 G/dL (31.0-37.0); MEAN CORPUSCULAR VOLUME 73 fL (80-100); MONOCYTES # (AUTO) 0.7 K/uL (0.1-1.0); MONOCYTES % (AUTO) 22.9 % (2.0-9.0); NEUTROPHILS # (AUTO) 1.4 K/uL (1.8-7.7); NEUTROPHILS % (AUTO) 47.1 % (40.0-70.0); PLATELET COUNT (AUTO) 151 K/uL (150-450); RED BLOOD CELL COUNT(AUTO) 6.24 MIL/uL (4.50-5.90); RED CELL DISTRIBUTION WIDTH 15.8 % (11.5-14.5)
[2022-01-17 11:05] LABS: CALCIUM, TOTAL 8.6 mg/dL (8.8-10.5); CREATININE 2.03 mg/dL (0.60-1.30); POTASSIUM 3.8 mmol/L (3.5-5.1)
[2022-01-17 15:59] VITALS: BP 124/83
[2022-01-17 19:37] VITALS: BP 117/59
[2022-01-18 04:14] VITALS: BP 107/69
[2022-01-18] MEDS: SODIUM CHLORIDE 0.9% 1,000 ML IV SCH (06:57)
[2022-01-18 07:15] VITALS: BP 124/70
[2022-01-18 08:50] LABS: CALCIUM, TOTAL 8.6 mg/dL (8.8-10.5); POTASSIUM 4.1 mmol/L (3.5-5.1)
[2022-01-18 08:57] LABS: CREATININE 1.56 mg/dL (0.60-1.30)
[2022-01-18] MEDS: DOCUSATE SODIUM 100 MG CAPSULE PO SCH (09:00)
[2022-01-18] MEDS: PANTOPRAZOLE SODIUM 40 MG/VIAL IVP SCH (09:06)
== END 2022-01-18 10:50 | disposition home or self-care (01) | DRG 137 ==
LOC: EMS 01:33 → 6S 05:17 → 6N 06:24
PROVIDERS: ADMIT Hospitalist; ATTEND Hospitalist
DX: U07.1 COVID-19 (principal); N17.9 Acute kidney failure, unspecified; K92.0 Hematemesis; L03.119 Cellulitis of unspecified part of limb; F19.10 Other psychoactive substance abuse, uncomplicated; Z82.49 Family history of ischemic heart disease and other diseases of the circulatory system; Z87.891 Personal history of nicotine dependence; I25.2 Old myocardial infarction; Z91.19 Patient's noncompliance with other medical treatment and regimen; Z76.5 Malingerer [conscious simulation]
CPT/HCPCS: 80048; 80053; 81001; 81002; 81003; 83690; 84132; 85025; 93005; 99285; C9113; J1644; J2405; J2765; J3490; J7030

== ENCOUNTER 2022-01-21 04:10 | Emergency (ER) | payer MEDICAID ==
[~2022-01-21] VITALS: Ht 193 cm; Wt 84.1 kg
[~2022-01-21 04:10] MED LIST changes: -CEPH-558 PO; -DOXY-354 PO; -LEVE250T PO
[2022-01-21 04:13] VITALS: BP 109/72
== END 2022-01-21 04:52 | disposition left against medical advice (07) ==
LOC: EMS 04:12
DX: Z48.02 Encounter for removal of sutures (principal); Z53.21 Procedure and treatment not carried out due to patient leaving prior to being seen by health care provider

== ENCOUNTER 2024-05-01 14:30 | Inpatient (IN) | payer MEDICAID ==
[~2024-05-01] VITALS: Ht 182.9 cm; Wt 67.2 kg
[~2024-05-01 14:30] MED LIST changes: +LEVE-71 PO; -LEVE500T20 PO
[2024-05-01] MEDS: AmLODIPine BESYLATE 10 MG TABLET PO ONE (17:16)
[2024-05-01 17:59] LABS: EOSINOPHILS % (AUTO) 1.1 % (1.0-6.0); HEMATOCRIT 54.9 % (41-53); HEMOGLOBIN 17.4 g/dL (13.5-17.5); LYMPHOCYTES # (AUTO) 1.4 K/uL (1.0-4.8); LYMPHOCYTES % (AUTO) 16.2 % (22.0-44.0); MEAN CORPUSCULAR HGB CONC 31.8 G/dL (31.0-37.0); MEAN CORPUSCULAR VOLUME 72 fL (80-100); MONOCYTES # (AUTO) 0.9 K/uL (0.1-1.0); MONOCYTES % (AUTO) 10.2 % (2.0-9.0); NEUTROPHILS % (AUTO) 71.5 % (40.0-70.0); PLATELET COUNT (AUTO) 289 K/uL (150-450); RED BLOOD CELL COUNT(AUTO) 7.59 MIL/uL (4.50-5.90); RED CELL DISTRIBUTION WIDTH 16.5 % (11.5-14.5); WHITE BLOOD COUNT (AUTO) 8.5 K/uL (4.5-11.0)
[2024-05-01] MEDS ORDERED: LORazepam 2 MG/ML VIAL IVP ONE (18:00)
[2024-05-01 18:09] LABS: CALCIUM, TOTAL 10.6 mg/dL (8.8-10.5); CREATININE 2.89 mg/dL (0.60-1.30); POTASSIUM 3.4 mmol/L (3.5-5.1)
[2024-05-01 18:16] LABS: ALBUMIN 4.5 g/dL (3.4-5.0); BILIRUBIN,DIRECT 0.1 mg/dL (0.00-0.20); BILIRUBIN,TOTAL 0.5 mg/dL (0.1-1.0)
[2024-05-01 18:19] LABS: TROPONIN I-HIGH SENSITIVITY 1453 ng/L (<76)
[2024-05-01] MEDS: LORazepam 2 MG TABLET PO ONE ×2 (18:30→18:31)
[2024-05-01] MEDS: ASPIRIN 81 MG CHEWABLE TABLET PO ONE (18:32)
[2024-05-01 18:36] LABS: RBC MORPHOLOGY COMMENT ABNORMAL RBC MORPH
[2024-05-01] MEDS: HydrALAZINE HCL 20 MG/ML VIAL IVP ONE (20:18)
[2024-05-01] MEDS: METOPROLOL TARTRATE 25 MG TABLET PO ONE (20:46)
[2024-05-01 21:12] LABS: APPEARANCE,URINE HAZY (CLEAR); BILIRUBIN,URINE NEGATIVE (NEGATIVE); COLOR,URINE LIGHT YELLOW (YELLOW); GLUCOSE, URINE (UA) 70-100 mg/dL (NEGATIVE); KETONES,URINE NEGATIVE (NEGATIVE); LEUKOCYTE ESTERASE ,URINE LARGE (NEGATIVE); NITRATE,URINE NEGATIVE (NEGATIVE); OCCULT BLOOD,URINE SMALL (NEGATIVE); PH,URINE 6.5 (5.0-8.0); PH,URINE DRUG SCREEN 6.5 (5.0-8.0); PROTEIN,URINE 100-200,SEE CONFIRM mg/dL (NEGATIVE); SPECIFIC GRAVITIY, URINE 1.013 (1.003-1.030); UROBILINOGEN,URINE <=1.0 mg/dL (<=1.0)
[2024-05-01 21:20] LABS: ALCOHOL, URINE DRUG SCREEN NEGATIVE (NEGATIVE); AMPHET/METH SCREEN,URINE POSITIVE (NEGATIVE); BARBITURATE SCREEN, URINE NEGATIVE (NEGATIVE); BENZODIAZEPINES SCREEN,URINE NEGATIVE (NEGATIVE); CANNABINOID SCREEN,URINE POSITIVE (NEGATIVE); COCAINE SCREEN,URINE NEGATIVE (NEGATIVE); METHADONE SCREEN, URINE NEGATIVE (NEGATIVE); OPIATE SCREEN,URINE NEGATIVE (NEGATIVE); PHENCYCLIDINE SCREEN,URINE NEGATIVE (NEGATIVE)
[2024-05-01 21:35] LABS: SULFOSALICYLIC ACID,URINE 1+ (Negative)
[2024-05-01 21:36] LABS: BACTERIA,URINE Few /HPF (None Seen); RBC,URINE 0-2 /HPF (0-2); SQUAMOUS EPITHELIAL CELL,UR None Seen /LPF (None Seen); WBC,URINE 26-50 /HPF (0-5)
[2024-05-01] MEDS ORDERED: MAGNESIUM HYDROXIDE SUSPENSION 30 ML UDCUP PO PRN (23:15)
[2024-05-01] MEDS ORDERED: CloNIDine 0.3 MG/24 HOUR PATCH TD ONE (23:15)
[2024-05-01] MEDS ORDERED: ZOLPIDEM TARTRATE 5 MG TABLET PO PRN (23:15)
[2024-05-01] MEDS ORDERED: ACETAMINOPHEN 325 MG TABLET PO PRN (23:15)
[2024-05-01] MEDS ORDERED: ONDANSETRON HCL 4 MG/2 ML VIAL IVP PRN (23:15)
[2024-05-01] MEDS ORDERED: ALBUTEROL SULFATE 2.5 MG/0.5 ML NEB SOLUTION NEB PRN (23:15)
[2024-05-01] MEDS ORDERED: HydrALAZINE HCL 20 MG/ML VIAL IVP PRN (23:15)
[2024-05-01] MEDS ORDERED: IPRATROPIUM BROMIDE 0.5 MG/2.5 ML NEB SOLUTION NEB PRN (23:15)
[2024-05-01] MEDS ORDERED: BISACODYL 10 MG RECTAL RECTAL SUPPOSITORY PR PRN (23:15)
[2024-05-02] MEDS: HEPARIN SODIUM,PORCINE 5,000 UNITS/ML VIAL SQ SCH
[2024-05-02 00:24] VITALS: BP 122/78; PULSE 116; RESP 20; TEMP 98.1; O2SAT 96
[2024-05-02 06:02] VITALS: BP 157/98; PULSE 98; RESP 20; TEMP 97.9; O2SAT 99
[2024-05-02 08:06] VITALS: BP 143/86; PULSE 82; RESP 18; TEMP 97.9; O2SAT 98
[2024-05-02] MEDS ORDERED: METOPROLOL TARTRATE 50 MG TABLET PO SCH (09:00)
[2024-05-02] MEDS: PANTOPRAZOLE SODIUM 40 MG DR TABLET PO SCH (09:00)
[2024-05-02] MEDS: ASPIRIN 81 MG CHEWABLE TABLET PO SCH (09:28)
[2024-05-02] MEDS: POTASSIUM CHLORIDE 20 MEQ ER TABLET PO SCH (09:30)
[2024-05-02 10:16] LABS: TROPONIN I-HIGH SENSITIVITY 1603 ng/L (<76)
[2024-05-02 12:00] VITALS: BP 129/87; PULSE 82; RESP 18; TEMP 98; O2SAT 100
[2024-05-02 16:00] VITALS: BP 143/75; PULSE 92; RESP 18; TEMP 97.9; O2SAT 93
[2024-05-02] MEDS: LABETALOL HCL 100 MG TABLET PO SCH (16:00)
[2024-05-02 19:23] VITALS: BP 126/71; PULSE 105; RESP 18; TEMP 98; O2SAT 100
[2024-05-03 05:12] VITALS: BP 122/77; PULSE 90; RESP 18; TEMP 98.1; O2SAT 98
[2024-05-03 06:58] LABS: MAGNESIUM 2.3 mg/dL (1.80-2.40); PHOSPHORUS 3.4 mg/dL (2.5-4.9)
[2024-05-03 07:19] LABS: CREATININE,URINE RANDOM 176.7 mg/dL (30.0-125.0)
[2024-05-03 08:09] VITALS: BP 145/92; PULSE 91; RESP 19; TEMP 98.1; O2SAT 98
[2024-05-03 10:36] LABS: BASOPHILS % (AUTO) 0.9 % (0.0-2.0); EOSINOPHILS % (AUTO) 4.7 % (1.0-6.0); HEMATOCRIT 44.5 % (41-53); LYMPHOCYTES # (AUTO) 1.2 K/uL (1.0-4.8); MEAN CORPUSCULAR HEMOGLOBIN 22.8 pg (26.0-34.0); MEAN CORPUSCULAR HGB CONC 31.5 G/dL (31.0-37.0); MEAN CORPUSCULAR VOLUME 72 fL (80-100); MONOCYTES # (AUTO) 0.7 K/uL (0.1-1.0); MONOCYTES % (AUTO) 14.7 % (2.0-9.0); NEUTROPHILS # (AUTO) 2.7 K/uL (1.8-7.7); NEUTROPHILS % (AUTO) 54.7 % (40.0-70.0); PLATELET COUNT (AUTO) 255 K/uL (150-450); RED BLOOD CELL COUNT(AUTO) 6.16 MIL/uL (4.50-5.90); RED CELL DISTRIBUTION WIDTH 15.9 % (11.5-14.5); WHITE BLOOD COUNT (AUTO) 4.9 K/uL (4.5-11.0)
[2024-05-03 10:52] LABS: CALCIUM, TOTAL 8.9 mg/dL (8.8-10.5); POTASSIUM 4.3 mmol/L (3.5-5.1)
[2024-05-03 10:57] LABS: TROPONIN I-HIGH SENSITIVITY 1275 ng/L (<76)
[2024-05-03 11:16] LABS: ALBUMIN 3.2 g/dL (3.4-5.0); BILIRUBIN,TOTAL 0.3 mg/dL (0.1-1.0); TOTAL PROTEIN, SERUM 7.6 g/dL (6.4-8.2)
[2024-05-03 11:35] VITALS: BP 140/90; PULSE 86; RESP 18; TEMP 98.3; O2SAT 98
[2024-05-03] MEDS: AmLODIPine BESYLATE 2.5 MG TABLET PO SCH (12:30)
[2024-05-03 15:08] VITALS: BP 146/93; PULSE 83; RESP 19; TEMP 98; O2SAT 97
[2024-05-03 19:12] VITALS: BP 143/91; PULSE 100; RESP 18; TEMP 98.2; O2SAT 96
[2024-05-03 23:42] VITALS: BP 146/87; PULSE 93; RESP 18; TEMP 98.3; O2SAT 98
[2024-05-04 03:45] VITALS: BP 152/89; PULSE 75; RESP 18; TEMP 98; O2SAT 99
[2024-05-04 07:35] VITALS: BP 158/98; PULSE 82; RESP 19; TEMP 98; O2SAT 99
[2024-05-04 10:06] LABS: PARATHYROID HORMONE INTACT 67 pg/mL (15-65)
[2024-05-04 11:29] VITALS: BP 161/105; PULSE 94; RESP 19; TEMP 98.1; O2SAT 99
[2024-05-04] MEDS ORDERED: AmLODIPine BESYLATE 5 MG TABLET PO SCH (21:00)
== END 2024-05-04 13:15 | disposition left against medical advice (07) | DRG 199 ==
LOC: EMS 14:30 → EDH 23:13 → 5S 23:56
PROVIDERS: ADMIT Hospitalist; ATTEND Hospitalist
PROC: GZ56ZZZ Individual Psychotherapy, Supportive (ICD-10-PCS; principal; 2024-05-04)
DX: I16.0 Hypertensive urgency (principal); N17.0 Acute kidney failure with tubular necrosis; I43 Cardiomyopathy in diseases classified elsewhere; E87.6 Hypokalemia; R79.89 Other specified abnormal findings of blood chemistry; E78.5 Hyperlipidemia, unspecified; F15.10 Other stimulant abuse, uncomplicated; N18.32 Chronic kidney disease, stage 3b; I12.9 Hypertensive chronic kidney disease with stage 1 through stage 4 chronic kidney disease, or unspecified chronic kidney disease; E83.52 Hypercalcemia; Z53.20 Procedure and treatment not carried out because of patient's decision for unspecified reasons; Z82.49 Family history of ischemic heart disease and other diseases of the circulatory system; I25.2 Old myocardial infarction; Z91.148 Patient's other noncompliance with medication regimen for other reason
CPT/HCPCS: 71045; 76770; 80048; 80053; 80076; 80307; 81001; 81002; 82306; 82550; 82570; 83735; 83880; 83970; 84100; 84156; 84300; 84484; 85025; 87086; 93005; 93306; 99291; J1644; J2060; 36415-L1; 36415-TC

== ENCOUNTER 2025-04-10 04:26 | Inpatient (IN) | payer OTHER ==
[~2025-04-10] VITALS: Ht 183.5 cm; Wt 55.7 kg
[2025-04-10] VITALS (10 sets, daily range): BP systolic 135–220; BP diastolic 86–153; PULSE 60–92; RESP 16–18; TEMP 96–98; O2SAT 96
[2025-04-10 05:17] LABS: PLATELET COUNT (AUTO) 240 K/uL (150-450); RED BLOOD CELL COUNT(AUTO) 4.54 MIL/uL (4.50-5.90); RED CELL DISTRIBUTION WIDTH 19.3 % (11.5-14.5); WHITE BLOOD COUNT (AUTO) 5.3 K/uL (4.5-11.0)
[2025-04-10 05:25] LABS: CALCIUM, TOTAL 7.7 mg/dL (8.8-10.5); CREATININE 6.11 mg/dL (0.60-1.30); GLOMERULAR FILTR. RATE CALC 11 mL/min (>60); GLUCOSE,RANDOM 102 mg/dL (70-110); SODIUM SERUM 145 mmol/L (136-145); UREA NITROGEN, BLOOD 46 mg/dL (7-18)
[2025-04-10 05:33] LABS: RBC MORPHOLOGY COMMENT ABNORMAL RBC MORPH
[2025-04-10 05:46] LABS: TROPONIN I-HIGH SENSITIVITY 381 ng/L (<76)
[2025-04-10] MEDS ORDERED: ACETAMINOPHEN 325 MG TABLET PO PRN (06:30)
[2025-04-10] MEDS ORDERED: BISACODYL 10 MG RECTAL RECTAL SUPPOSITORY PR PRN (06:30)
[2025-04-10] MEDS ORDERED: ONDANSETRON HCL 4 MG/2 ML VIAL IVP PRN (06:30)
[2025-04-10 06:43] LABS: ASPARTATE AMINOTRANSFERASE 44.0 U/L (15-37); CREATINE KINASE, TOTAL ONLY 299.0 U/L (39-308); TOTAL PROTEIN, SERUM 7.2 g/dL (6.4-8.2)
[2025-04-10 07:12] LABS: TROPONIN I-HIGH SENSITIVITY 381 ng/L (<76)
[2025-04-10] MEDS: LORazepam 2 MG/ML VIAL IM ONE (07:26)
[2025-04-10] MEDS ORDERED: LORazepam 2 MG/ML VIAL IM ONE (07:30)
[2025-04-10] MEDS: DOCUSATE SODIUM 100 MG CAPSULE PO SCH (08:03)
[2025-04-10] MEDS: FAMOTIDINE 20 MG TABLET PO SCH (09:00)
[2025-04-10] MEDS: LABETALOL HCL 5 MG/ML 20 ML VIAL IVP PRN (14:47)
[2025-04-10 16:20] LABS: PLATELET COUNT (AUTO) 229 K/uL (150-450); RED BLOOD CELL COUNT(AUTO) 5.67 MIL/uL (4.50-5.90); RED CELL DISTRIBUTION WIDTH 20.3 % (11.5-14.5); WHITE BLOOD COUNT (AUTO) 7.0 K/uL (4.5-11.0)
[2025-04-10] MEDS: DEXTROSE 5%-0.45% SODIUM CHL 1,000 ML IV ONE (16:21)
[2025-04-10 16:23] LABS: CALCIUM, TOTAL 8.2 mg/dL (8.8-10.5); CREATININE 3.28 mg/dL (0.60-1.30); GLOMERULAR FILTR. RATE CALC 23 mL/min (>60); GLUCOSE,RANDOM 93 mg/dL (70-110); SODIUM SERUM 137 mmol/L (136-145); UREA NITROGEN, BLOOD 23 mg/dL (7-18)
[2025-04-10 16:33] LABS: TROPONIN I-HIGH SENSITIVITY 462 ng/L (<76)
[2025-04-10 16:43] LABS: ABG A-A DIFF O2 12.7 mmHg (10-20.0); ABG BASE EXCESS 2.6 mmol/L (-2.0-3.0); ABG CARBOXYHEMOGLOBIN 2.7 % (0.5-1.5); ABG HCO3 26.6 mmol/L (21.0-28.0); ABG METHEMOGLOBIN 0.4 % (0.0-1.5); ABG OXYGEN CONTENT 18.2 mL/dL (15.0-23.0); ABG OXYGEN SATURATION 97.1 % (94.0-98.0); ABG OXYHEMOGLOBIN 94.1 % (94.0-98.0); ABG PCO2 40 mmHg (32.0-48.0); ABG PH 7.443 (7.350-7.450); ABG TOTAL HEMOGLOBIN 13.7 G/dL (13.5-17.5); ALLEN TEST, BLOOD GAS Positive; FRACTIONATED INSPIRED OXYGEN 21.0 % (21-100.0); O2 DEVICE,BLOOD GAS ROOM AIR (ROOM AIR); PO2, ARTERIAL BG 89.3 mmHg (83.0-108.0); SITE, BLOOD GAS RT RADIAL; SOURCE, BLOOD GAS ARTERIAL; TEMPERATURE, FAHRENHEIT, BG 98.6 FAHREN (96.0-98.6)
[2025-04-10 16:58] LABS: BAND NEUTROPHILS % (MANUAL) 1 % (0-5); EOSINOPHILS % (MANUAL) 2 % (1-6); LYMPHOCYTES % (MANUAL) 13 % (22-44); MONOCYTES % (MANUAL) 13 % (2-9); SEGMENTED NEUTROPHILS % 71 % (40-70)
[2025-04-10 17:02] LABS: PLATELET MORPHOLOGY COMMENT LARGE PLTS PRESENT; RBC MORPHOLOGY COMMENT ABNORMAL R
[2025-04-10 17:36] LABS: APPEARANCE,URINE CLEAR (CLEAR); GLUCOSE, URINE (UA) NEGATIVE (NEGATIVE); LEUKOCYTE ESTERASE ,URINE NEGATIVE (NEGATIVE); NITRATE,URINE NEGATIVE (NEGATIVE); OCCULT BLOOD,URINE SMALL (NEGATIVE); SPECIFIC GRAVITIY, URINE 1.007 (1.003-1.030)
[2025-04-10 17:42] LABS: AMPHET/METH SCREEN,URINE NEGATIVE (NEGATIVE); BARBITURATE SCREEN, URINE NEGATIVE (NEGATIVE); CANNABINOID SCREEN,URINE POSITIVE (NEGATIVE); COCAINE SCREEN,URINE NEGATIVE (NEGATIVE); METHADONE SCREEN, URINE NEGATIVE (NEGATIVE)
[2025-04-10 17:47] LABS: ALCOHOL, URINE DRUG SCREEN NEGATIVE (NEGATIVE)
[2025-04-10] MEDS: HEPARIN SODIUM,PORCINE 1,000 UNITS/ML VIAL IVCATH ONE ×2 (17:48)
[2025-04-10 17:50] LABS: PH,URINE DRUG SCREEN 8.0 (5.0-8.0)
[2025-04-10 17:52] LABS: SULFOSALICYLIC ACID,URINE 4+ (Negative)
[2025-04-10 17:54] LABS: SQUAMOUS EPITHELIAL CELL,UR Rare /LPF (None Seen)
[2025-04-10] MEDS: DEXTROSE 50%-WATER 25 GM/50 ML SYRINGE IVP ONE (19:09)
[2025-04-10 22:32] LABS: TROPONIN I-HIGH SENSITIVITY 517 ng/L (<76)
[2025-04-11] VITALS: BP 151/73; PULSE 75; RESP 23; TEMP 96.5; O2SAT 95
[2025-04-11 04:00] VITALS: BP 115/60; PULSE 73; RESP 16; TEMP 97.2; O2SAT 99
[2025-04-11 05:33] LABS: PLATELET COUNT (AUTO) 230 K/uL (150-450); RED BLOOD CELL COUNT(AUTO) 5.56 MIL/uL (4.50-5.90); RED CELL DISTRIBUTION WIDTH 19.6 % (11.5-14.5); WHITE BLOOD COUNT (AUTO) 5.0 K/uL (4.5-11.0)
[2025-04-11 05:47] LABS: CALCIUM, TOTAL 7.6 mg/dL (8.8-10.5); CREATININE 4.65 mg/dL (0.60-1.30); GLOMERULAR FILTR. RATE CALC 15 mL/min (>60); GLUCOSE,RANDOM 91 mg/dL (70-110); SODIUM SERUM 141 mmol/L (136-145); UREA NITROGEN, BLOOD 31 mg/dL (7-18)
[2025-04-11 05:53] LABS: TROPONIN I-HIGH SENSITIVITY 400 ng/L (<76)
[2025-04-11 06:13] LABS: RBC MORPHOLOGY COMMENT ABNORMAL RBC MORPH
[2025-04-11 08:00] VITALS: BP 170/84; PULSE 88; RESP 11; O2SAT 99
[2025-04-11 12:00] VITALS: BP 122/58; PULSE 82; RESP 17
[2025-04-11 16:00] VITALS: BP 187/107; RESP 18
[2025-04-11 20:00] VITALS: BP 117/54; PULSE 81; RESP 13; TEMP 98.9; O2SAT 98
[2025-04-12] VITALS (14 sets, daily range): BP systolic 111–158; BP diastolic 59–77; PULSE 79–90; RESP 16–22; TEMP 98–99; O2SAT 96–100
[2025-04-12] MEDS ORDERED: SODIUM CHLORIDE 0.9% 1,000 ML ONE ×2 (06:02)
[2025-04-12 06:18] LABS: CALCIUM, TOTAL 7.2 mg/dL (8.8-10.5); CREATININE 6.13 mg/dL (0.60-1.30); GLOMERULAR FILTR. RATE CALC 11.0 mL/min (>60); GLUCOSE,RANDOM 126.0 mg/dL (70-110); SODIUM SERUM 142.0 mmol/L (136-145); UREA NITROGEN, BLOOD 39.0 mg/dL (7-18)
[2025-04-12 06:22] LABS: PHOSPHORUS 5.3 mg/dL (2.5-4.9)
[2025-04-12] MEDS: ETHYL ALCOHOL 62% ANTISEPTIC NASAL SANITIZER 0.6 ML AMPUL NASAL SCH (09:22)
[2025-04-12] MEDS: LOSARTAN POTASSIUM 50 MG TABLET PO SCH (09:22)
[2025-04-12] MEDS: LABETALOL HCL 200 MG TABLET PO SCH (09:23)
[2025-04-12] MEDS: HEPARIN SODIUM,PORCINE 1,000 UNITS/ML VIAL IVCATH ONE ×2 (10:05)
[2025-04-12] MEDS: FOLIC ACID/VIT B COMPLEX AND C TABLET PO SCH (12:48)
[2025-04-13] VITALS: BP 125/65; PULSE 77; RESP 17; TEMP 98.4; O2SAT 100
[2025-04-13 04:00] VITALS: BP 144/73; PULSE 75; RESP 16; TEMP 98.5; O2SAT 100
[2025-04-13 05:10] LABS: CALCIUM, TOTAL 7.3 mg/dL (8.8-10.5); CREATININE 4.9 mg/dL (0.60-1.30); GLOMERULAR FILTR. RATE CALC 15.0 mL/min (>60); GLUCOSE,RANDOM 105.0 mg/dL (70-110); SODIUM SERUM 139.0 mmol/L (136-145); UREA NITROGEN, BLOOD 31.0 mg/dL (7-18)
[2025-04-13 05:17] LABS: PHOSPHORUS 3.6 mg/dL (2.5-4.9)
[2025-04-13 07:53] VITALS: BP 128/70; PULSE 78; RESP 18; TEMP 98.9; O2SAT 100
== END 2025-04-13 07:53 | disposition left against medical advice (07) | DRG 52 ==
LOC: EMS 04:28 → EDH 06:28 → ICU 21:04
PROVIDERS: ADMIT Internal Medicine; ATTEND Internal Medicine
PROC: 5A1D70Z Performance of Urinary Filtration, Intermittent, Less than 6 Hours Per Day (ICD-10-PCS; principal; 2025-04-10)
PROC: 5A1D70Z Performance of Urinary Filtration, Intermittent, Less than 6 Hours Per Day (ICD-10-PCS; 2025-04-12)
DX: G92.8 Other toxic encephalopathy (principal); I12.0 Hypertensive chronic kidney disease with stage 5 chronic kidney disease or end stage renal disease; N18.6 End stage renal disease; I16.1 Hypertensive emergency; D63.8 Anemia in other chronic diseases classified elsewhere; I67.4 Hypertensive encephalopathy; D64.9 Anemia, unspecified; I25.10 Atherosclerotic heart disease of native coronary artery without angina pectoris; F19.10 Other psychoactive substance abuse, uncomplicated; Z99.2 Dependence on renal dialysis; Z82.49 Family history of ischemic heart disease and other diseases of the circulatory system; Z79.899 Other long term (current) drug therapy; Z79.82 Long term (current) use of aspirin; Z91.199 Patient's noncompliance with other medical treatment and regimen due to unspecified reason
CPT/HCPCS: 51701; 70450; 71045; 80048; 80076; 80307; 81001; 81002; 82140; 82550; 82805; 83735; 83880; 84100; 84484; 85025; 85610; 85730; 87081; 87340; 87389; 90935; 93005; 99285; G0480; J0360; J1200; J1630; J2060; J3490; J7030; J7050; 36415-L1; 36415-TC